=== PATIENT | male | born 1995 | race Caucasian/White ===

== ENCOUNTER 2018-09-10 12:06 | Emergency (ER) | payer SELFPAY ==
[~2018-09-10] VITALS: Ht 160 cm; Wt 64.4 kg
--- NOTE | 2018-09-10 12:18 | NUR ---
BIB AMBULANCE C/O BEE STING WITH HIVES. PT PRESENTS WITH HIVES ON BACK AND CHEST THAT HAVE IMPROVED, PER DIET ASSISTANT. DENIES SOB, DIZZINESS, WEAKNESS, N/V. AOX4, AMB, VSS, RR EVEN AND UNLABORED. NO ACUTE DISTRESS NOTED. READY FOR EVAL.
[2018-09-10] MEDS ORDERED: FAMOTIDINE (20 MG) 20 MG TABLET PO ONE (12:30)
[2018-09-10] MEDS ORDERED: diphenhydrAMINE HCL 50 MG CAPSULE PO ONE (12:30)
[2018-09-10] MEDS ORDERED: predniSONE 10 MG TABLET PO ONE (12:30)
[2018-09-10] MEDS ORDERED: FAMOTIDINE (20 MG) 20 MG TABLET ONE (12:51)
[2018-09-10] MEDS ORDERED: predniSONE 20 MG TABLET ONE (12:51)
[2018-09-10] MEDS ORDERED: diphenhydrAMINE HCL 50 MG CAPSULE ONE (12:51)
--- NOTE | 2018-09-10 14:36 | NUR ---
Patient discharged to home in stable condition. Written and verbal after care instructions given. Patient verbalizes understanding of instruction.
[2018-09-10 14:38] VITALS: BP 101/52
== END 2018-09-10 14:30 | disposition home or self-care (01) ==
LOC: ER 12:09
DX: T63.441A Toxic effect of venom of bees, accidental (unintentional), initial encounter (principal); Y92.89 Other specified places as the place of occurrence of the external cause
CPT/HCPCS: Q0163